=== PATIENT | female | born 1970 | race Caucasian/White ===

== ENCOUNTER 2016-09-22 19:04 | Emergency (ER) | payer OTHER ==
[~2016-09-22] VITALS: Ht 160 cm; Wt 66.5 kg
[2016-09-22 19:19] VITALS: Ht 160 cm; Wt 66.5 kg
[2016-09-22] MEDS ORDERED: IBUP-1542 PO (19:31)
[2016-09-22] MEDS ORDERED: NPH10OT RIGHT EAR (19:31)
--- NOTE | 2016-09-22 19:48 | ERD ---
ER Documentation Chief Complaint Date/Time DATE: 09/22/16 TIME: 19:46 Chief Complaint right ear pain x2 weeks HPI 45-year-old female presents to emergency department for complaints of right pain for 2 weeks. Patient described the pain as throbbing pain, 6/10 scale, complaining of muffled hearing with it. Patient denies any trauma in the ear. Patient denies any ear discharge. Patient denies any fever or chills. Patient took ibuprofen for pain with mild relief. ROS All systems reviewed and are negative except as per history of present illness. Medications Home Meds Active Scripts Neomycin/Polymyxin/Hydrocort* (Cortisporin* Otic) 10 Ml Susp, 4 DROP RIGHT EAR QID for 7 Days, EA Prov:OLIVA MEEKS CONTROL CLERK REPAIRS 09/22/16 Ibuprofen* (Motrin*) 600 Mg Tab, 600 MG PO Q6H Y for PAIN AND OR ELEVATED TEMP, #30 TAB Prov:OLIVA MEEKS NP 09/22/16 Reported Medications [None] No Conflict Check 08/19/13 Allergies Allergies: Coded Allergies: No Known Allergy (Unverified , 08/19/13) PMhx/Soc Medical and Surgical Hx: pt denies Medical Hx, pt denies Surgical Hx History of Surgery: No Anesthesia Reaction: No Hx Neurological Disorder: No Hx Respiratory Disorders: No Hx Cardiac Disorders: No Hx Psychiatric Problems: No Hx Miscellaneous Medical Probl: No Hx Alcohol Use: No Hx Substance Use: No Hx Tobacco Use: No FmHx Family History: No coronary disease, No diabetes, No other Physical Exam Vitals Vital Signs Date Time Temp Pulse Resp B/P Pulse Ox O2 Delivery O2 Flow Rate FiO2 09/22/16 19:19 98.5 66 20 165/78 100 Physical Exam GENERAL: The patient is well developed and appropriate for usual state of health, in no apparent distress. HEENT: Atraumatic. Ears: Normal tympanic membrane, no erythema or bulging. Right ear canal to be erythematous and swollen. No left ear canal swelling. No left ear discharge. Nose: normal nasal turbinates, no erythema or swelling. Normal nasal discharge. Throat: oropharynx clear. No tonsillar swelling or tonsillar exudates. No lymphadenopathy. CHEST: Clear to auscultation bilaterally. There are no rales, wheezes or rhonchi. HEART: Regular rate and rhythm. No murmurs, clicks, rubs or gallops. No S3 or S4. ABDOMEN: Soft, nontender and nondistended. Good bowel sounds. No rebound or guarding. No gross peritonitis. No gross organomegaly or masses. No Mueller sign or McBurney point tenderness. BACK: No midline or flank tenderness. EXTREMITIES: Equal pulses bilaterally. There is no peripheral clubbing, cyanosis or edema. No focal swelling or erythema. Full range of motion. Grossly neurovascularly intact. NEURO: Alert and oriented. Cranial nerves 2-12 intact. Motor strength in all 4 extremities with 5/5 strength. Sensation grossly intact. Normal speech and gait. SKIN: There is no apparent rash or petechia. The skin is warm and dry. HEMATOLOGIC AND LYMPHATIC: There is no evidence of excessive bruising or lymphedema. No gross cervical, axillary, or inguinal lymphadenopathy. Procedures/MDM Medical decision making: Patient's symptoms are likely consistent with otitis externa, no symptoms of otitis media or mastoiditis. No foreign body. No cerumen impaction. No symptoms of sepsis at this time. no symptoms of malignant otitis. No symptoms of sepsis at this time, doesn't have any abscesses. Prescription was given for Cortisporin Otic drops, ibuprofen, is advised to follow-up with primary care doctor in 2-3 days for reevaluation of symptoms. Patient was advised to return to emergency department for any8 worsening symptoms. Departure Diagnosis: Primary Impression: Otitis externa Otitis externa type: unspecified type Laterality: right Chronicity: acute Qualified Code: H60.501 - Acute otitis externa of right ear, unspecified type Condition: Stable Patient Instructions: External Ear Infection (Adult) OLIVA MEEKS NP Sep 22, 2016 19:48
== END 2016-09-22 19:31 | disposition home or self-care (01) ==
LOC: FTE 19:04 → E/R 19:31
DX: H60.501 Unspecified acute noninfective otitis externa, right ear (principal)
CPT/HCPCS: 99283

== ENCOUNTER 2017-04-16 08:37 | Inpatient (IN) | payer OTHER ==
[~2017-04-16] VITALS: Ht 152.4 cm; Wt 65.5 kg
[2017-04-16] VITALS (30 sets, daily range): BP systolic 106–131; BP diastolic 55–72; PULSE 57–99; RESP 11–22; Ht 152.4 cm; Wt 65.5 kg
[~2017-04-16 08:37] MED LIST: CEFAZOLIN 1 GM INJ ONE
[2017-04-16] MEDS ORDERED: OMEP20CA16 PO (11:46)
[2017-04-16] MEDS ORDERED: METHYLENE BLUE 1% 10 ML INJ ONE (11:51)
[2017-04-16] MEDS ORDERED: THROMBIN 5000 UNIT VIAL ONE (11:51)
[2017-04-16] MEDS ORDERED: VASOPRESSIN 20 UNITS INJ ONE (11:51)
[2017-04-16] MEDS ORDERED: Metronidazole 500 MG in NS 100 ML IVPB ONE (12:00)
[2017-04-16] MEDS ORDERED: CEFAZOLIN 2 GM/50 ML (PMX) 50 ML IVPB ONE (12:00)
[2017-04-16] MEDS ORDERED: D5-NS + KCL 20 MEQ 1,000 ML IV ONE (12:30)
[2017-04-16] MEDS ORDERED: morphine SULFATE/PF (10 MG/10 ML) INJ ONE (13:14)
[2017-04-16] MEDS ORDERED: FENTAnyl 50 MCG/ML VIAL ONE ×2 (13:15→15:51)
[2017-04-16] MEDS ORDERED: MIDAZOLAM 1 MG/ML 2 ML INJ ONE ×2 (13:21)
[2017-04-16] MEDS ORDERED: HYDROmorphONE 0.5 MG/0.5 ML SYG IV PRN ×3 (13:30)
[2017-04-16] MEDS ORDERED: hydrALAzine 20 MG INJ IV PRN (13:30)
[2017-04-16] MEDS ORDERED: FENTAnyl 50 MCG/ML VIAL IV PRN ×3 (13:30)
[2017-04-16] MEDS ORDERED: MEPERIDINE 25 MG INJ IV PRN (13:30)
[2017-04-16] MEDS ORDERED: HYDROmorphONE (0.2 MG/ML) 10ML SYG IV PRN ×3 (13:30)
[2017-04-16] MEDS ORDERED: ZOLPIDEM 5 MG TAB PO PRN (13:30)
[2017-04-16] MEDS ORDERED: NALOXONE (0.4 MG/ML) INJ IV PRN (13:30)
[2017-04-16] MEDS ORDERED: LABETALOL HCL 20MG INJ IV PRN (13:30)
[2017-04-16] MEDS ORDERED: EPHEDrine SULFATE 50 MG/5 ML SYG IV PRN (13:30)
[2017-04-16] MEDS ORDERED: KETOROLAC 30 MG INJ IV PRN ×3 (13:30→18:00)
[2017-04-16] MEDS ORDERED: DIPHENHYDRAMINE 50 MG INJ IV PRN ×3 (13:30→18:00)
[2017-04-16] MEDS ORDERED: ONDANSETRON 4 MG INJ IV PRN ×3 (13:30→18:00)
[2017-04-16] MEDS ORDERED: METOCLOPRAMIDE 10 MG INJ IV PRN (13:30)
[2017-04-16] MEDS ORDERED: PHENYLephrine (100 MCG/ML) 5ML SYG ONE (13:46)
[2017-04-16] MEDS ORDERED: DEXAMETHASONE 4 MG/ML 1 ML INJ ONE ×2 (13:47→14:01)
[2017-04-16] MEDS ORDERED: ROCURONIUM 50 MG INJ ONE (13:47)
[2017-04-16] MEDS ORDERED: LIDOCAINE 2% (SDV) 5 ML INJ ONE (13:47)
[2017-04-16] MEDS ORDERED: PROPOFOL 20 ML ONE (13:47)
[2017-04-16] MEDS ORDERED: ONDANSETRON 4 MG INJ ONE (17:19)
[2017-04-16] MEDS ORDERED: SUGAMMADEX SODIUM 200 MG/2 ML VIAL IV ONE (17:35)
[2017-04-16 18:31] LABS: BASOPHILS % 0.2 % (0.0-2.0); EOSINOPHILS % 0.1 % (0.0-7.0); HEMATOCRIT 35.3 % (37.0-47.0); HEMOGLOBIN 10.8 g/dl (12.0-16.0); LYMPHOCYTES # 0.7 10^3/ul (0.8-2.9); LYMPHOCYTES % 5.8 % (15.0-51.0); MEAN CORPUSCULAR HGB CONC 30.6 g/dl (32.0-37.0); MEAN CORPUSCULAR VOLUME 75.1 fl (82.0-101.0); MEAN PLATELET VOLUME 10.3 fl (7.4-10.4); MONOCYTE # 0.2 10^3/ul (0.3-0.9); MONOCYTES % 1.3 % (0.0-11.0); NEUTROPHIL # 11.6 10^3/ul (1.6-7.5); NEUTROPHILS % 91.8 % (39.0-77.0); PLATELET COUNT 199 10^3/UL (140-415); RED CELL DISTRIBUTION WIDTH 17.2 % (11.5-14.5)
[2017-04-16 18:51] LABS: CALCIUM 8.6 mg/dl (8.4-10.2); CREATININE 0.62 mg/dl (0.44-1.00); POTASSIUM 3.7 mmol/L (3.5-5.1)
--- NOTE | 2017-04-16 18:57 | HPN ---
Date/Time of Note Date/Time of Note DATE: 04/16/17 TIME: 18:57 Interval H&P Admission Note Pt. seen H&P reviewed: No system changes KALYANI GARCIA MD Apr 16, 2017 18:57
--- NOTE | 2017-04-16 19:00 | SIPON ---
Date/Time of Note Date/Time of Note DATE: 04/16/17 TIME: 18:58 Operative Report Preoperative Diagnosis fibroids Postoperative Diagnosis same and ureteral stricture Operation/Procedure Performed LSH,BS,UDx2 Surgeon see signature line safety assistant Shamsian Anesthesia: other Estimated blood loss: 10 - 50 ml's Transfusion Required none Specimen multiple Grafts/Implants none Complications none KALYANI GARCIA MD Apr 16, 2017 19:00
[2017-04-16 19:27] LABS: HOLD TRANSMISSIONS 1
[2017-04-16 19:29] LABS: WHITE BLOOD COUNT 12.6 10^3/ul (4.8-10.8)
[2017-04-16 19:37] LABS: ADD UMIC YES; UR ASCORBIC ACID NEGATIVE (NEGATIVE); UR BACTERIA FEW /HPF (NONE SEEN); UR BILIRUBIN (Dip) NEGATIVE (NEGATIVE); UR BLOOD (Dip) NEGATIVE (NEGATIVE); UR CLARITY SLIGHTLY CLOUDY (CLEAR); UR COLOR YELLOW (YELLOW); UR GLUCOSE (Dip) NEGATIVE (NEGATIVE); UR KETONES (Dip) 1+ mg/dL (NEGATIVE); UR LEUKOCYTE ESTERASE (Dip) NEGATIVE Leu/ul (NEGATIVE); UR MUCUS FEW /HPF (NONE SEEN); UR NITRITE (Dip) NEGATIVE (NEGATIVE); UR RBC 4 /HPF (0-5); UR SPECIFIC GRAVITY (Dip) 1.018 (1.003-1.030); UR TOTAL PROTEIN (Dip) 1+ mg/dl (NEGATIVE); UR UROBILINOGEN (Dip) NEGATIVE (NEGATIVE)
[2017-04-16] MEDS ORDERED: CEFAZOLIN 1 GM in SOD CHLORIDE 0.9% 100 ML IVPB SCH (20:00)
[2017-04-16] MEDS: morphine 2 MG INJ IV PRN (20:28)
[2017-04-16] MEDS: metroNIDAZOLE 500 MG/NS (PMX) 100 ML IVPB SCH (20:28)
[2017-04-16] MEDS: CEFAZOLIN 1 GM/50 ML (PMX) 50 ML IVPB SCH (21:34)
[2017-04-16] MEDS: POTASSIUM CHLORIDE 20 MEQ in LACTATED RINGER'S 1,000 ML IV SCH (22:00)
[2017-04-17] MEDS: morphine 2 MG INJ IV PRN ×4 (00:42→18:08)
[2017-04-17] MEDS: POTASSIUM CHLORIDE 20 MEQ in LACTATED RINGER'S 1,000 ML IV SCH ×2 (01:08→15:07)
[2017-04-17] MEDS: metroNIDAZOLE 500 MG/NS (PMX) 100 ML IVPB SCH ×2 (04:36→12:14)
[2017-04-17] MEDS: HYDROCODONE/APAP (5/325) TAB PO PRN ×2 (04:45→21:47)
[2017-04-17 05:00] VITALS: BP 110/56; PULSE 88; RESP 18
[2017-04-17] MEDS: CEFAZOLIN 1 GM/50 ML (PMX) 50 ML IVPB SCH ×3 (05:20→13:53)
[2017-04-17 06:07] LABS: BASOPHILS % 0.1 % (0.0-2.0); HEMATOCRIT 31.9 % (37.0-47.0); HEMOGLOBIN 9.7 g/dl (12.0-16.0); LYMPHOCYTES # 0.9 10^3/ul (0.8-2.9); LYMPHOCYTES % 6.8 % (15.0-51.0); MEAN CORPUSCULAR HEMOGLOBIN 22.6 pg (29.0-33.0); MEAN CORPUSCULAR HGB CONC 30.4 g/dl (32.0-37.0); MEAN CORPUSCULAR VOLUME 74.4 fl (82.0-101.0); MEAN PLATELET VOLUME 11.2 fl (7.4-10.4); MONOCYTE # 0.5 10^3/ul (0.3-0.9); MONOCYTES % 3.8 % (0.0-11.0); NEUTROPHIL # 11.4 10^3/ul (1.6-7.5); NEUTROPHILS % 88.8 % (39.0-77.0); PLATELET COUNT 214 10^3/UL (140-415); RED BLOOD COUNT 4.29 10^6/ul (4.20-5.40); RED CELL DISTRIBUTION WIDTH 17.5 % (11.5-14.5); WHITE BLOOD COUNT 12.9 10^3/ul (4.8-10.8)
[2017-04-17 06:32] LABS: CALCIUM 8.7 mg/dl (8.4-10.2); CREATININE 0.62 mg/dl (0.44-1.00)
[2017-04-17] MEDS ORDERED: ROCURONIUM 50 MG INJ ONE (07:00)
[2017-04-17 08:23] VITALS: BP 109/59; RESP 19
--- NOTE | 2017-04-17 09:31 | OPPN ---
Date/Time of Note Date/Time of Note DATE: 04/17/17 TIME: 09:29 Anesthesia Follow up Anesthesia Follow up Last documented vital signs Vital Signs Date Time Temp Pulse Resp B/P Pulse Ox O2 Delivery O2 Flow Rate FiO2 04/17/17 08:23 98.0 64 19 109/59 98 04/17/17 05:00 Nasal Cannula 04/16/17 22:45 2.0 Respiratory function: WNL Cardiovascular function: WNL Comments post op day one status post supracervical hysterectomy with intrathecal duramorph for post operative pain managemnt. No adverse effects noted, and satisfactory pain management with combination intrathecal morphine and parenteral supplement. SU MORRISSEY Apr 17, 2017 09:31
[2017-04-17] MEDS: FAMOTIDINE 20 MG INJ IV SCH ×2 (09:38→21:29)
--- NOTE | 2017-04-17 13:26 | HP ---
Date/Time of Note Date/Time of Note DATE: 04/17/17 TIME: 13:17 Assessment/Plan VTE Prophylaxis VTE Prophylaxis Intervention: SCD's Lines/Catheters IV [facility]from [facility]): Peripheral IV Urinary Cath still in place: No Assessment/Plan Assessment/Plan - Symptomatic fibroids, status post laparoscopic supracervical hysterectomy, BSO , bilateral ureteral dissection by Dr. Germain on 04/16, advance diet as patient tolerates, continue IV fluids and postoperative antibiotics, follow up surgical recommendations. Continue Burke and Toradol for pain and Zofran as needed for nausea. - History of GERD, continue Protonix Further recommendations based on clinical course. Plan of care discussed with Dr. Hunt. HPI/ROS Admit Date/Time Admit Date/Time Apr 16, 2017 at 11:19 Hx of Present Illness Patient is a 46-year-old female who presented with pelvic mass and symptomatic fibroids. Patient denies any prior medical history except for GERD for which patient takes omeprazole. Patient was evaluated by Dr. Horner and was brought to the hospital and underwent laparoscopic supracervical hysterectomy, BSO, bilateral ureteral dissection. Patient is admitted for further evaluation and management. During the examination patient denies any chest pain denies any nausea vomiting denies any shortness of breath. ROS 12 point review of system is negative except for what mentioned PMH/Family/Social Past Medical History Medical History: GERD Past Surgical History Post tubal ligation Family History Significant Family History: no pertinent family hx Social History Alcohol Use: none Smoking Status: Former smoker Drug Use: none Exam/Review of Systems Vital Signs Vitals Vital Signs Date Time Temp Pulse Resp B/P Pulse Ox O2 Delivery O2 Flow Rate FiO2 04/17/17 08:23 98.0 64 19 109/59 98 04/17/17 05:00 Nasal Cannula 04/16/17 22:45 2.0 Intake and Output 04/16/17 04/16/17 04/17/17 15:00 23:00 07:00 Intake Total 2100 ml 150 ml 810 ml Output Total 700 ml 950 ml Balance 1400 ml 150 ml -140 ml Exam Constitutional: alert, oriented Head: normocephalic Neck: supple Respiratory: clear to auscultation Cardiovascular: nl pulses Gastrointestinal: other (Status post surgery), soft Musculoskeletal: nl extremities to inspection Extremities: normal pulses Labs Result Diagram: 04/17/17 0433 04/17/17 0433 Medications Medications Current Medications Hydromorphone HCl (Dilaudid) 0.2 mg Q2H PRN IV PAIN LEVEL 1-5; Start 04/16/17 at 13:30; Stop 04/17/17 at 13:29 Ketorolac Tromethamine (Toradol) 30 mg Q6H PRN IV PAIN LEVEL 6-10 Last administered on 04/16/17 18:06; Admin Dose 30 MG; Start 04/16/17 at 13:30; Stop 04/19/17 at 13:29 Diphenhydramine HCl (Benadryl) 25 mg Q4H PRN IV PRURITUS; Start 04/16/17 at 13 :30; Stop 04/17/17 at 13:29 Ondansetron HCl (Zofran Inj) 4 mg Q6H PRN IV NAUSEA AND/OR VOMITING; Start at 13:30; Stop 04/17/17 at 13:29 Naloxone HCl (Narcan) 0.2 mg Q2M PRN IV FOR RESP RATE 8 OR LESS; Start at 13:30; Stop 04/17/17 at 13:29 Hydromorphone HCl 0.4 mg 0.4 mg Q2H PRN IV PAIN LEVEL 6-10; Start 04/16/17 at 13:30; Stop 04/17/17 at 13:29 Metronidazole (Flagyl 500 Mg (Pmx)) 100 ml @ 100 mls/hr Q8H IVPB Last administered on 04/17/17 12:14; Admin Dose 100 MLS/HR; Start 04/16/17 at 20: 00; Stop 04/17/17 at 19:59 Morphine Sulfate (morphine) 2 mg Q2H PRN IV PAIN LEVEL 6-10 Last administered on 04/17/17 12:15; Admin Dose 2 MG; Start 04/16/17 at 18:00 Acetaminophen/ Hydrocodone Bitart ([place]ke (5/325)) 1 tab Q6H PRN PO PAIN LEVEL 6 -10 Last administered on 04/17/17 04:45; Admin Dose 1 TAB; Start 04/16/17 at 18:00 Ketorolac Tromethamine (Toradol) 30 mg Q6H PRN IV PAIN; Start 04/16/17 at 18: 00; Stop 04/19/17 at 17:59 Diphenhydramine HCl (Benadryl) 25 mg Q6H PRN IV ITCHING; Start 04/16/17 at 18: 00 Ondansetron HCl (Zofran Inj) 4 mg Q6H PRN IV NAUSEA AND/OR VOMITING; Start at 18:00 Famotidine 20 mg 20 mg Q12 IV Last administered on 04/17/17 09:38; Admin Dose 20 MG; Start 04/17/17 at 09:00 Potassium Chloride 20 meq/ Lactated Ringer's 1,010 ml @ 100 mls/hr Q10H6M IV Last administered on 04/17/17 01:08; Admin Dose 100 MLS/HR; Start 04/16/17 at 22:00 Cefazolin Sodium (Ancef 1 Gm/50 ml (Pmx)) 50 ml @ 100 mls/hr Q8H IVPB Last administered on 04/17/17 06:28; Admin Dose 100 MLS/HR; Start 04/16/17 at 21: 00; Stop 04/17/17 at 13:29 ADILSON GIBSON Apr 17, 2017 13:26
[2017-04-17 14:00] VITALS: BP 119/71; RESP 19
[2017-04-17 20:21] VITALS: BP 120/55; RESP 20
[2017-04-18 03:10] VITALS: BP 100/56; RESP 20
[2017-04-18 05:13] LABS: BASOPHILS % 0.3 % (0.0-2.0); EOSINOPHILS % 0.2 % (0.0-7.0); HEMATOCRIT 29.5 % (37.0-47.0); HEMOGLOBIN 8.9 g/dl (12.0-16.0); LYMPHOCYTES # 3.2 10^3/ul (0.8-2.9); LYMPHOCYTES % 25.1 % (15.0-51.0); MEAN CORPUSCULAR HEMOGLOBIN 22.6 pg (29.0-33.0); MEAN CORPUSCULAR HGB CONC 30.2 g/dl (32.0-37.0); MEAN CORPUSCULAR VOLUME 75.1 fl (82.0-101.0); MEAN PLATELET VOLUME 10.7 fl (7.4-10.4); MONOCYTE # 0.7 10^3/ul (0.3-0.9); MONOCYTES % 5.2 % (0.0-11.0); NEUTROPHIL # 8.8 10^3/ul (1.6-7.5); NEUTROPHILS % 68.9 % (39.0-77.0); PLATELET COUNT 187 10^3/UL (140-415); RED BLOOD COUNT 3.93 10^6/ul (4.20-5.40); RED CELL DISTRIBUTION WIDTH 17.7 % (11.5-14.5); WHITE BLOOD COUNT 12.7 10^3/ul (4.8-10.8)
[2017-04-18 06:00] LABS: CALCIUM 8.7 mg/dl (8.4-10.2); CREATININE 0.58 mg/dl (0.44-1.00); POTASSIUM 3.8 mmol/L (3.5-5.1)
[2017-04-18] MEDS: POTASSIUM CHLORIDE 20 MEQ in LACTATED RINGER'S 1,000 ML IV SCH (07:40)
[2017-04-18 07:59] VITALS: BP 130/63; RESP 16
[2017-04-18] MEDS: HYDROCODONE/APAP (5/325) TAB PO PRN ×3 (08:49→20:16)
[2017-04-18] MEDS: FAMOTIDINE 20 MG INJ IV SCH ×2 (08:49→20:16)
--- NOTE | 2017-04-18 11:49 | PN ---
Date/Time of Note Date/Time of Note DATE: 04/18/17 TIME: 11:44 Assessment/Plan VTE Prophylaxis VTE Prophylaxis Intervention: LMWH Lines/Catheters IV Catheter Type (from Nrs): Peripheral IV Urinary Cath still in place: No Assessment/Plan Assessment/Plan - Symptomatic fibroids - status post laparoscopic supracervical hysterectomy, BSO, bilateral ureteral dissection by Dr. Germain on 04/16 - per surgery - advance diet as patient tolerates, continue - IV fluids and postoperative antibiotics - Continue [place] and Toradol for pain and Zofran as needed for nausea. - c/o gas pain - Simethicone 1 tab prn gas pain - History of GERD, continue Protonix Further recommendations based on clinical course. Plan of care discussed with Dr. Hunt. Subjective 24 Hr Interval Summary Free Text/Dictation c.o gas pain, denies any chest pain, NVD. DW staff Constitutional: requiring IVF Respiratory: no complaints Cardiovascular: no complaints Gastrointestinal: other (gas pain), pain Genitourinary: no complaints Musculoskeletal: no complaints Neurologic: no complaints Exam/Review of Systems Vital Signs Vitals Vital Signs Date Time Temp Pulse Resp B/P Pulse Ox O2 Delivery O2 Flow Rate FiO2 04/18/17 07:59 98.0 59 16 130/63 100 04/17/17 05:00 Nasal Cannula 04/16/17 22:45 2.0 Intake and Output 04/17/17 04/17/17 04/18/17 15:00 23:00 07:00 Intake Total 150 ml 1960 ml 1160 ml Output Total 642 ml Balance -492 ml 1960 ml 1160 ml Exam Constitutional: alert, oriented, well developed Respiratory: clear to auscultation, normal air movement Cardiovascular: nl pulses, other (s1s2) Gastrointestinal: other (surgical abdomen), soft Musculoskeletal: nl extremities to inspection Extremities: normal pulses Neurological: nl mental status, nl speech Results Result Diagram: 04/18/1744404/18/17444 Results 24 hrs Laboratory Tests Test 04/18/17 04:45 White Blood Count 12.7 H Red Blood Count 3.93 L Hemoglobin 8.9 L Hematocrit 29.5 L Mean Corpuscular Volume 75.1 L Mean Corpuscular Hemoglobin 22.6 L Mean Corpuscular Hemoglobin Concent 30.2 L Red Cell Distribution Width 17.7 H Platelet Count 187 Mean Platelet Volume 10.7 H Neutrophils % 68.9 Lymphocytes % 25.1 Monocytes % 5.2 Eosinophils % 0.2 Basophils % 0.3 Nucleated Red Blood Cells % 0.0 Neutrophils # 8.8 H Lymphocytes # 3.2 H Monocytes # 0.7 Eosinophils # 0.0 Basophils # 0.0 Nucleated Red Blood Cells # 0.0 Sodium Level 142 Potassium Level 3.8 Chloride Level 107 Carbon Dioxide Level 31 Anion Gap 8 Blood Urea Nitrogen 11 Creatinine 0.58 Glucose Level 92 Calcium Level 8.7 Medications Medications Current Medications Ketorolac Tromethamine (Toradol) 30 mg Q6H PRN IV PAIN LEVEL 6-10 Last administered on 04/16/17 18:06; Admin Dose 30 MG; Start 04/16/17 at 13:30; Stop 04/19/17 at 13:29 Morphine Sulfate (morphine) 2 mg Q2H PRN IV PAIN LEVEL 6-10 Last administered on 04/17/17 18:08; Admin Dose 2 MG; Start 04/16/17 at 18:00 Acetaminophen/ Hydrocodone Bitart ([place] (5/325)) 1 tab Q6H PRN PO PAIN LEVEL 6 -10 Last administered on 04/18/17 08:49; Admin Dose 1 TAB; Start 04/16/17 at 18:00 Ketorolac Tromethamine (Toradol) 30 mg Q6H PRN IV PAIN; Start 04/16/17 at 18: 00; Stop 04/19/17 at 17:59 Diphenhydramine HCl (Benadryl) 25 mg Q6H PRN IV ITCHING; Start 04/16/17 at 18: 00 Ondansetron HCl (Zofran Inj) 4 mg Q6H PRN IV NAUSEA AND/OR VOMITING; Start at 18:00 Famotidine 20 mg 20 mg Q12 IV Last administered on 04/18/17 08:49; Admin Dose 20 MG; Start 04/17/17 at 09:00 Potassium Chloride/Lactated Ringer's (KCl/Lr) 1,010 ml @ 50 mls/hr [id number] IV Last administered on 04/18/17 07:40; Admin Dose 50 MLS/HR; Start 04/16/17 at 22:00 ELLA MOSES Apr 18, 2017 11:49
[2017-04-18 13:50] VITALS: BP 132/78; RESP 15
--- NOTE | 2017-04-18 13:58 | PN ---
Date/Time of Note Date/Time of Note DATE: 04/18/17 TIME: 13:52 Assessment/Plan VTE Prophylaxis VTE Prophylaxis Intervention: SCD's Lines/Catheters IV Catheter Type (from Nrs): Peripheral IV Urinary Cath still in place: No Assessment/Plan Chief Complaint/Hosp Course symptomatic fibroids Problems: Assessment/Plan A- improved but due to discomfort and inadequate bowel fct cannot dischg today P- OOB more, taper pain meds and probable d/c tomorrow Subjective 24 Hr Interval Summary Free Text/Dictation Some upper abd discomfort and minimal flatus. Exam/Review of Systems Vital Signs Vitals Vital Signs Date Time Temp Pulse Resp B/P Pulse Ox O2 Delivery O2 Flow Rate FiO2 04/18/17 07:59 98.0 59 16 130/63 100 04/17/17 05:00 Nasal Cannula 04/16/17 22:45 2.0 Intake and Output 04/17/17 04/17/17 04/18/17 15:00 23:00 07:00 Intake Total 150 ml 1960 ml 1160 ml Output Total 642 ml Balance -492 ml 1960 ml 1160 ml Exam Resp- clear CVS- NSR Abd- soft, clean, mildly tender Ext- NT no edema Results Result Diagram: 04/18/175 04/18/17 0445 Results 24 hrs Laboratory Tests Test 04/18/17 04:45 White Blood Count 12.7 H Red Blood Count 3.93 L Hemoglobin 8.9 L Hematocrit 29.5 L Mean Corpuscular Volume 75.1 L Mean Corpuscular Hemoglobin 22.6 L Mean Corpuscular Hemoglobin Concent 30.2 L Red Cell Distribution Width 17.7 H Platelet Count 187 Mean Platelet Volume 10.7 H Neutrophils % 68.9 Lymphocytes % 25.1 Monocytes % 5.2 Eosinophils % 0.2 Basophils % 0.3 Nucleated Red Blood Cells % 0.0 Neutrophils # 8.8 H Lymphocytes # 3.2 H Monocytes # 0.7 Eosinophils # 0.0 Basophils # 0.0 Nucleated Red Blood Cells # 0.0 Sodium Level 142 Potassium Level 3.8 Chloride Level 107 Carbon Dioxide Level 31 Anion Gap 8 Blood Urea Nitrogen 11 Creatinine 0.58 Glucose Level 92 Calcium Level 8.7 Medications Medications Current Medications Ketorolac Tromethamine (Toradol) 30 mg Q6H PRN IV PAIN LEVEL 6-10 Last administered on 04/16/17t 18:06; Admin Dose 30 MG; Start 04/16/17 at 13:30; Stop 04/19/17 at 13:29 Morphine Sulfate (morphine) 2 mg Q2H PRN IV PAIN LEVEL 6-10 Last administered on 04/17/17 18:08; Admin Dose 2 MG; Start 04/16/17 at 18:00 Acetaminophen/ Hydrocodone Bitart ([place] (5/325)) 1 tab Q6H PRN PO PAIN LEVEL 6 -10 Last administered on 04/18/17 08:49; Admin Dose 1 TAB; Start 04/16/17 at 18:00 Diphenhydramine HCl (Benadryl) 25 mg Q6H PRN IV ITCHING; Start 04/16/17 at 18: 00 Ondansetron HCl (Zofran Inj) 4 mg Q6H PRN IV NAUSEA AND/OR VOMITING; Start at 18:00 Famotidine 20 mg 20 mg Q12 IV Last administered on 04/18/17 08:49; Admin Dose 20 MG; Start 04/17/17 at 09:00 Potassium Chloride/Lactated Ringer's (KCl/Lr) 1,010 ml @ 50 mls/hr [id number] IV Last administered on 04/18/17 07:40; Admin Dose 50 MLS/HR; Start 04/16/17 at 22:00 Simethicone (Mylicon) 80 mg Q6H PRN PO DISTENSION/GAS/BLOATING Last administered on 04/18/17 11:52; Admin Dose 80 MG; Start 04/18/17 at 12:00 KALYANI GARCIA MD Apr 18, 2017 13:58
--- NOTE | 2017-04-18 16:05 | OPR ---
Date/Time of Note Date/Time of Note DATE: 04/18/17 TIME: 16:02 Operative Report Free Text/Dictation OPERATIVE REPORT [facility] Name: Carol Ann Pham [facility] Date: 04/16/17 Preoperative Diagnosis: 1- Uterine fibroids 2- Pelvic pain and menorrhagia Postoperative Diagnosis: 1- Multiple fibroids possible adenomyosis 2- Ureteral stricture 3- Hypervascularity Procedures: 1- Laparoscopic subtotal hysterectomy with bilateral salpingectomy 2- Bilateral ureteral dissection with repositioning 3- Retroperitoneal uterine artery ligation Surgeon: Dr. Garcia Modeling And Simulation Analyst: Dr. Coleman Anesthesia: General with regional Indications for Surgery The patient was a 46- year old female with a large symptomatic pelvic mass consistent with fibroids and/or adenomyosis. She selected a LSH with BS or possible USO or BSO and staging if needed after considering all risks and benefits. Findings and Summary The patient was laparoscoped and found to have a large hypervascular fibroids that were distorting the retroperitoneal anatomy significantly. Therefore it was necessary to Name: Carol Ann Pham [facility] open the retroperitoneum bilaterally and dissect and reposition the ureters bilaterally for the purposes of accessing the triple pedicle each side at the time of BS. Due to additional anatomic distortion by the enlarged uterus and hypervascualrity the uterine arteries were clipped and desiccated bilaterally immediately distal to the branching of the hypogastrics as a separate procedure with additional dissection as well. The laparoscopic supracervical hysterectomy was then completed with morcellation without incident. Procedure: After being prepped and draped in the usual manner a sponge stick was placed in the vagina. A 5-millimeter trocar was then placed immediately cephlad to the umbilicus without incident. Subsequently, we insufflated and placed two 5- millimeter trocars laterally and a 5-millimeter trocar suprapubically. At this time any pelvic adhesions were lysed with sharp dissection. Subsequently we explored and noted a large uterus with fibroids approximately 14-16 wk size and possible adenomyosis with hypervascularity, all distorting the retroperitoneal anatomy significantly, and necessitating a ureteral dissection with repositioning due to impossibility to address the uterine artery primarily. Initially a corkscrew was placed in the fibroids and secured into place with a Johnny Arm after which the right round ligament was transected with the Gyrus bipolar cutting forceps and the retroperitoneal spaced opened parallel to the IP ligament and laterally with the same devise and Omni. The ureter was identified and because of the large uterine mass as well as unsuspected stricture due to scaring, required a specific dissection and repositioning. The ureter was bluntly dissected away from the enlarged uterus with fibrotic tissue and broad ligament with an Omni, and carefully repositioned lateral to the broad ligament. Because of some oozing and because the anatomy of the uterus resulted in displacement of the vessels laterally it mandated that we isolate the uterine artery and vein adjacent to the ureter that was lateralized to the level of the hypogastric artery using the endo-dissector and Omni for hemostasis with the previously dissected ureter visualized. Therefore in this case the uterine artery was Name: Carol [facility] hemoclipped immediately distal to the branching of the hypogastric and at the bifurcation of the hypogastric, proximal to the branching of the uterine and obliterated umbilical; salvaging both observed superior and inferior vesicle while controlling the entire uterine with associated collateral branches. At this time the right fallopian tube was removed with the Thunderbeat and the right triple pedicle was desiccated and transected with the Thunderbeat, and attention as addressed to the contralateral side. Subsequently, the corkscrew was reinserted and secured into place with a Johnny Arm and the left round ligament was transected with a Thunderbeat and the retroperitoneum opened parallel to the infundibulo-pelvic (IP) ligament with an Omni. The ureteral dissection with repositioning was undertaken. The ureter was dissected away from the peritoneum with adjacent uterus with adnexia and repositioned with care using the endo-dissector and Omni and Thunderbeat, again with the dissection being somewhat required due to some distortion of the retroperitoneum by the large uterus with fibroids. This process was carried out throughout the ureteral length in the pelvis and it peristalsed normally once repositioned. Again, because of hypervascularity and because the anatomy of the uterus resulted in displacement of the vessels laterally it mandated that we isolate the uterine artery and vein adjacent to the ureter that was lateralized to the level of the hypogastric artery using the endo-dissector and Omni for hemostasis with the previously dissected ureter visualized. Therefore in this case the uterine artery was hemoclipped immediately distal to the branching of the hypogastric and at the bifurcation of the hypogastric, proximal to the branching of the uterine and obliterated umbilical; salvaging both observed superior and inferior vesicle while controlling the entire uterine with associated collateral branches. At this time the left fallopian tube was again removed similar to contralateralally and the triple pedicle was desiccated and transected with the Thunderbeat. We then used a cork screw manipulator placed through the 12-mm suprapubic trocar to manipulate the uterus allowing development or the bladder flap uneventfully with the Omni and blunt dissection. The right uterine artery was transected with a Thunderbeat perpendicular to the distal lower uterine segment and the Cardinal ligament and utero-sacral ligament Name: Carol Ann Pham [facility] were both transected with a Omni and Thunderbeat parallel to the lower uterine segment and cervix via the contralateral trocar site. An identical series of steps were taken on the left side. Hence, the uterus was removed from the cervix with the Thunderbeat and hemostasis confirmed with the Omni. The cervix and the endocervical canal were thoroughly ablated with the Omni. The uterus was then removed with the Olympus uterine morcellator and sac inserted by expanding the 5-millimeter trocar to 15-millimeter. After irrigating and assuring hemostasis the 15 millimeter trocar was removed and the fascia was closed with 0-vicryl using an endo-close devise. The gas was removed and the skin of all sites then closed with 5-0 Monocryl suture subcutaneously. The EBL was 100 cc and the patient tolerated the procedure well and left the OR in good condition. Rancho Garcia M.D. Preoperative Diagnosis as above Postoperative Diagnosis as above Operation/Procedure Performed as above Surgeon see signature line Modeling And Simulation Analyst as above Anesthesia Type: other Estimated Blood Loss: 100 - 150 ml's Transfusion none Specimen multiple Grafts/Implants none Complications none Procedure Description as above RANCHO GARCIA MD Apr 18, 2017 16:05
[2017-04-18 20:00] VITALS: BP 124/67; RESP 18
[2017-04-18] MEDS: KETOROLAC 30 MG INJ IV PRN (20:16)
[2017-04-19 01:59] VITALS: BP 120/69; RESP 18
[2017-04-19] MEDS: POTASSIUM CHLORIDE 20 MEQ in LACTATED RINGER'S 1,000 ML IV SCH (03:46)
[2017-04-19 05:26] LABS: BASOPHILS % 0.3 % (0.0-2.0); EOSINOPHILS # 0.2 10^3/ul (0.0-0.5); EOSINOPHILS % 1.9 % (0.0-7.0); HEMATOCRIT 33.2 % (37.0-47.0); HEMOGLOBIN 9.9 g/dl (12.0-16.0); LYMPHOCYTES # 3.7 10^3/ul (0.8-2.9); LYMPHOCYTES % 40.1 % (15.0-51.0); MEAN CORPUSCULAR HEMOGLOBIN 22.2 pg (29.0-33.0); MEAN CORPUSCULAR HGB CONC 29.8 g/dl (32.0-37.0); MEAN CORPUSCULAR VOLUME 74.4 fl (82.0-101.0); MEAN PLATELET VOLUME 10.7 fl (7.4-10.4); MONOCYTE # 0.6 10^3/ul (0.3-0.9); NEUTROPHIL # 4.6 10^3/ul (1.6-7.5); NEUTROPHILS % 50.5 % (39.0-77.0); PLATELET COUNT 205 10^3/UL (140-415); RED BLOOD COUNT 4.46 10^6/ul (4.20-5.40); RED CELL DISTRIBUTION WIDTH 17.8 % (11.5-14.5); WHITE BLOOD COUNT 9.1 10^3/ul (4.8-10.8)
[2017-04-19] MEDS: HYDROCODONE/APAP (5/325) TAB PO PRN ×2 (05:50→18:34)
[2017-04-19 06:14] LABS: CALCIUM 9.1 mg/dl (8.4-10.2); CREATININE 0.59 mg/dl (0.44-1.00); POTASSIUM 4.2 mmol/L (3.5-5.1)
[2017-04-19 07:50] VITALS: BP 137/71; RESP 16
[2017-04-19] MEDS: FAMOTIDINE 20 MG INJ IV SCH ×2 (09:08→20:58)
--- NOTE | 2017-04-19 12:09 | QN ---
Documentation Comment Less pain and OOB more,+flatus and sergio diet. Will adv diet and d/c today after sergio. RTO 1 wk KALYANI GARCIA MD Apr 19, 2017 12:09
--- NOTE | 2017-04-19 12:20 | PDOCDIS ---
Discharge Instructions CONDITION Patient Condition: Stable HOME CARE INSTRUCTIONS: Diet Instructions: Special Diet: Full liquid diet ACTIVITY: Activity Restrictions: Slowly Increase Activity Rest between Activity Avoid heavy lifting Do not Drive Do not operate Machinery Do not operate Power Tool Avoid Heavy Housework Bathing Restrictions: FOLLOW UP/APPOINTMENTS Follow-up Plan FU with Primary x 1 week FU with surgery as recommended. Call 911 or go to the nearest hospital if symptoms get worse. Patient and family verbalized understanding dc instructions. Dw Dr Garvin/ staff ELLA MOSES Apr 19, 2017 12:20
[2017-04-19] MEDS ORDERED: HYDR-3498 PO (12:22)
[2017-04-19] MEDS ORDERED: DOCU-144 PO (12:22)
--- NOTE | 2017-04-19 12:23 | DS ---
Date/Time of Note Date/Time of Note DATE: 04/19/17 TIME: 12: Discharge Summary Admission/Discharge Info Admit Date/Time Apr 18, 2017 at 16:30 Discharge Date/Time Hx of Present Illness Patient is a 46-year-old female who presented with pelvic mass and symptomatic fibroids. Patient denies any prior medical history except for GERD for which patient takes omeprazole. Patient was evaluated by Dr. Horner and was brought to the hospital and underwent laparoscopic supracervical hysterectomy, BSO, bilateral ureteral dissection. Patient is admitted for further evaluation and management. During the examination patient denies any chest pain denies any nausea vomiting denies any shortness of breath. Hospital Course symptomatic fibroids Home Meds Active Scripts Docusate Sodium* (Colace*) 100 Mg Capsule, 100 MG PO DAILY, #30 CAP Prov:ELLA MOSES 04/19/17 Hydrocodone Bit-Acetaminophen (Hydrocodone Bit-APAP) 5-325MG Tablet, 1 TAB PO Q6H Y for PAIN, #10 TAB Prov:ELLA MOSES 04/19/17 Reported Medications Omeprazole* (Omeprazole*) 20 Mg Capsule., 20 MG PO DAILY, #30 CAP 04/16/17 Discontinued Reported Medications [None] No Conflict Check 08/19/13 Discontinued Scripts Neomycin/Polymyxin/Hydrocort* (Cortisporin* Otic) 10 Ml Susp, 4 DROP RIGHT EAR QID for 7 Days, EA Prov:OLIVA MEEKS NP 09/22/16 Ibuprofen* (Motrin*) 600 Mg Tab, 600 MG PO Q6H Y for PAIN AND OR ELEVATED TEMP, #30 TAB Prov:OLIVA MEEKS NP 09/22/16 Follow-up Plan FU with Primary x 1 week FU with surgery as recommended. Call 911 or go to the nearest hospital if symptoms get worse. Patient and family verbalized understanding dc instructions. Dw Dr Garvin/ staff Primary Care Provider Kyaw Wong Pending Labs Laboratory Tests Test 04/19/17 04:36 White Blood Count 9.110^3/ul (4.8-10.8) Red Blood Count 4.4610^6/ul (4.20-5.40) Hemoglobin 9.9g/dl (12.0-16.0) Hematocrit 33.2% (37.0-47.0) Mean Corpuscular Volume 74.4fl (82.0-101.0) Mean Corpuscular Hemoglobin 22.2pg (29.0-33.0) Mean Corpuscular Hemoglobin Concent 29.8g/dl (32.0-37.0) Red Cell Distribution Width 17.8% (11.5-14.5) Platelet Count 58882^3/UL (140-415) Mean Platelet Volume 10.7fl (7.4-10.4) Neutrophils % 50.5% (39.0-77.0) Lymphocytes % 40.1% (15.0-51.0) Monocytes % 7.0% (0.0-11.0) Eosinophils % 1.9% (0.0-7.0) Basophils % 0.3% (0.0-2.0) Nucleated Red Blood Cells % 0.0/100WBC (0.0-0.0) Neutrophils # 4.610^3/ul (1.6-7.5) Lymphocytes # 3.710^3/ul (0.8-2.9) Monocytes # 0.610^3/ul (0.3-0.9) Eosinophils # 0.210^3/ul (0.0-0.5) Basophils # 0.010^3/ul (0.0-0.1) Nucleated Red Blood Cells # 0.010^3/ul (0.0-0.0) Sodium Level 141mmol/L (135-144) Potassium Level 4.2mmol/L (3.5-5.1) Chloride Level 104mmol/L (97-110) Carbon Dioxide Level 29mmol/L (21-31) Anion Gap 12 (8-16) Blood Urea Nitrogen 9mg/dl (7-20) Creatinine 0.59mg/dl (0.44-1.00) Glucose Level 87mg/dl (70-220) Calcium Level 9.1mg/dl (8.4-10.2) ELLA MOSES Apr 19, 2017 12:22
[2017-04-19] MEDS: KETOROLAC 30 MG INJ IV PRN (14:16)
[2017-04-19 15:50] VITALS: BP 131/58; RESP 16
[2017-04-19 20:00] VITALS: BP 131/69; RESP 18
[2017-04-20 02:08] VITALS: BP 116/60; RESP 16
[2017-04-20] MEDS: HYDROCODONE/APAP (5/325) TAB PO PRN ×2 (02:17→09:09)
[2017-04-20 08:00] VITALS: BP 122/63; RESP 18
[2017-04-20] MEDS: FAMOTIDINE 20 MG INJ IV SCH (09:09)
[2017-04-20] MEDS: POTASSIUM CHLORIDE 20 MEQ in LACTATED RINGER'S 1,000 ML IV SCH (10:17)
[2017-04-20] MEDS ORDERED: FAMOTIDINE 20 MG TAB PO SCH (21:00)
== END 2017-04-20 10:30 | disposition home or self-care (01) | DRG 743 ==
LOC: REC 11:19 → INTOOBSV 11:19 → MS1 19:45 → OBSVTOIN 04-18 16:30
PROC: 0UT94ZL Resection of Uterus, Supracervical, Percutaneous Endoscopic Approach (ICD-10-PCS; principal; 2017-04-18)
PROC: 0UT74ZZ Resection of Bilateral Fallopian Tubes, Percutaneous Endoscopic Approach (ICD-10-PCS; 2017-04-18)
PROC: 0TS84ZZ Reposition Bilateral Ureters, Percutaneous Endoscopic Approach (ICD-10-PCS; 2017-04-18)
DX: D25.9 Leiomyoma of uterus, unspecified (principal); N13.5 Crossing vessel and stricture of ureter without hydronephrosis; K21.9 Gastro-esophageal reflux disease without esophagitis; N80.0 Endometriosis of uterus
CPT/HCPCS: 80048; 81001; 84703; 85025; 86850; 86900; 86901; 86920; 87086; 88302; 88305; G0378; J0690; J1100; J1170; J1885; J2250; J2270; J2274; J2370; J2405; J3010; J3480; J7120